=== PATIENT | female | born 1970 | race Caucasian/White ===

== ENCOUNTER 2017-09-23 21:02 | Emergency (ER) | payer BC ==
[2017-09-23] MEDS ORDERED: TETANUS & DIPHTHERIA TOX,ADULT 0.5 ML VIAL ONE (22:46)
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
[2017-09-23] MEDS ORDERED: CIPROFLOXACIN HCL 500 MG TAB ONE (23:35)
[2017-09-23] MEDS ORDERED: SMZ./TMP. 800/160 MG TABLET ONE (23:36)
[2017-09-23 23:55] VITALS: O2SAT 99
[2017-09-23 23:56] VITALS: BP 131/76; TEMP 97.8
== END 2017-09-23 23:48 | disposition home or self-care (01) ==
LOC: ER 21:02
DX: L03.115 Cellulitis of right lower limb (principal); F17.210 Nicotine dependence, cigarettes, uncomplicated; Z23 Encounter for immunization; Z88.0 Allergy status to penicillin
CPT/HCPCS: 90714; 99283

== ENCOUNTER 2017-11-17 17:06 | Emergency (ER) | payer SELFPAY ==
--- NOTE | 2017-11-17 17:57 | ER ---
Nurse's Notes [facility] Name: Leigh Doyle Age: 46 yrs Sex: Female : 1970 Arrival Date: 11/17/2017 Time: 17:20 Bed Waiting Private MD: Diagnosis: Presentation: 11/17 17:24 Presenting complaint: Patient states: Lower abdominal pain with diarrhea and nausea for aj 2 days. Transition of care: patient was not received from another setting of care. Onset of symptoms was November 15, 2017. Care prior to arrival: None. 17:24 Method Of Arrival: Wheelchair 17:24 Acuity: SHIRA 3 aj Triage Assessment: 17:26 General: Appears in no apparent distress. comfortable, Behavior is calm, cooperative, aj appropriate for age. Pain: Complains of pain in right lower quadrant and left lower quadrant. Neuro: Level of Consciousness is awake, alert, obeys commands, Oriented to person, place, time, situation, Appropriate for age. Respiratory: Airway is patent Respiratory effort is even, unlabored, Respiratory pattern is regular, symmetrical. GI: Reports lower abdominal pain, diarrhea, nausea. Derm: Skin is intact, is healthy with good turgor, Skin is pink, warm \T\ dry. normal. 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 - Social history:: Smoking status: Patient uses tobacco products, smokes one pack cigarettes per day. Assessment: 17:55 Reassessment: Left due to wait time. aj Vital Signs: 17:26 BP 130 / 87; Pulse 105; Resp 19; Temp 97.6; Pulse Ox 96% on R/A; Weight 125.19 kg; aj Height 5 ft. 4 in. (162.56 cm); Pain 7/10; 17:26 Body Mass Index 47.37 (125.19 kg, 162.56 cm) aj ED Course: 17:20 Patient arrived in ED. mr 17:25 Triage completed. aj 17:26 Arm band placed on left wrist. Patient placed in waiting room, Patient notified of wait aj time. 17:56 Herbert Sahu MD is Attending Physician. aj Administered Medications: No medications were administered Outcome: 17:55 Eloped from waiting room, before seeing physician aj 17:56 Patient left the ED. aj Signatures: Jewell Muhammad, RN RN aj Josephine Basilio mr
[2017-11-17 18:00] VITALS: BP 130/87; TEMP 97.6; O2SAT 96
== END 2017-11-17 17:56 | disposition left against medical advice (07) ==
LOC: ER 17:06
DX: Z53.21 Procedure and treatment not carried out due to patient leaving prior to being seen by health care provider (principal)
CPT/HCPCS: 99281

== ENCOUNTER 2022-09-23 14:55 | Emergency (ER) | payer OTHER ==
[2022-09-23] MEDS ORDERED: KETOROLAC 30 MG/ML INJ ONE (15:29)
[2022-09-23] MEDS ORDERED: ONDANSETRON 4 MG (ODT) TAB ONE (15:37)
--- NOTE | 2022-09-23 16:12 | RAD REPORT ---
EXAM DESCRIPTION: RAD - Ankle Left 3 View - 09/23/2022 4:04 pm CLINICAL HISTORY: Pain;Swelling COMPARISON: No comparisons FINDINGS/IMPRESSION: No acute fracture. No malalignment. Midfoot degenerative changes noted. Diffuse soft tissue prominence without focality.
--- NOTE | 2022-09-23 16:12 | RAD REPORT ---
EXAM DESCRIPTION: RAD - Foot Left 3 View - 09/23/2022 4:04 pm CLINICAL HISTORY: Pain;Swelling COMPARISON: No comparisons FINDINGS/IMPRESSION: No acute fracture. No malalignment. No significant focal degenerative changes.
--- NOTE | 2022-09-23 16:27 | EDPHYS ---
Physician Documentation [facility] Name: Leigh Doyle Age: 51 yrs Sex: Female : 1970 Arrival Date: 09/23/2022 Time: 15:04 Bed 12 Private MD: ED Physician Jareth Diaz HPI: 09/23 15:15 This 51 yrs old Female presents to ER via Wheelchair with complaints of Ankle Injury. jh7 15:15 The patient presents with decreased range of motion, an injury, pain, that is acute, jh7 swelling, tenderness. The complaints affect the left ankle. Onset: The symptoms/episode began/occurred acutely. Associated signs and symptoms: Pertinent positives: nausea, swelling, of the left ankle, Pertinent negatives: calf tenderness, fever, rash, tingling, warmth. 51-year-old female reports that she was standing off the stool, fell, and inverted her left ankle. Reports the injury occurred at noon today. Reports pain with range of motion and weightbearing. Denies head injury or LOC.. 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 - Social history:: Smoking status: unknown. ROS: 15:15 Constitutional: Negative for fever, chills, and weight loss, Eyes: Negative for injury, jh7 pain, redness, and discharge, ENT: Negative for injury, pain, and discharge, Neck: Negative for injury, pain, and swelling, Cardiovascular: Negative for chest pain, palpitations, and edema, Respiratory: Negative for shortness of breath, cough, wheezing, and pleuritic chest pain, Abdomen/GI: Negative for abdominal pain, nausea, vomiting, diarrhea, and constipation, Back: Negative for injury and pain, Skin: Negative for injury, rash, and discoloration, Neuro: Negative for headache, weakness, numbness, tingling, and seizure. 15:15 MS/extremity: Positive for injury or acute deformity, decreased range of motion, ecchymosis, pain, swelling, tenderness. 15:15 All other systems are negative. Exam: 15:15 Constitutional: This is a well developed, well nourished patient who is awake, alert, jh7 and in no acute distress. Head/Face: Normocephalic, atraumatic. Eyes: Pupils equal round and reactive to light, extra-ocular motions intact. Lids and lashes normal. Conjunctiva and sclera are non-icteric and not injected. Cornea within normal limits. Periorbital areas with no swelling, redness, or edema. Neck: Trachea midline, no thyromegaly or masses palpated, and no cervical lymphadenopathy. Supple, full range of motion without nuchal rigidity, or vertebral point tenderness. No Meningismus. Cardiovascular: Regular rate and rhythm with a normal S1 and S2. No gallops, murmurs, or rubs. Normal PMI, no JVD. No pulse deficits. Respiratory: Lungs have equal breath sounds bilaterally, clear to auscultation and percussion. No rales, rhonchi or wheezes noted. No increased work of breathing, no retractions or nasal flaring. Abdomen/GI: Soft, non-tender, with normal bowel sounds. No distension or tympany. No guarding or rebound. No evidence of tenderness throughout. Back: No spinal tenderness. No costovertebral tenderness. Full range of motion. Skin: Warm, dry with normal turgor. Normal color with no rashes, no lesions, and no evidence of cellulitis. Neuro: Awake and alert, GCS 15, oriented to person, place, time, and situation. Sensory grossly intact. 15:15 Musculoskeletal/extremity: ROM: limited active range of motion, in the left ankle, limited active range of motion due to pain, in the left ankle, Circulation is intact in all extremities. Pulses: are normal with no appreciated deficits, Sensation intact. Left ankle: NVI, very limited range of motion of the ankle secondary to pain and swelling. There is diffuse swelling of the ankle extending to the foot with significant tenderness to palpation over the medial malleolus radiating to the posterior foot. Mild bruising also noted around the medial malleolus. Pain with weightbearing.. Vital Signs: 15:14 BP 150 / 107; Pulse 97; Resp 18 S; Temp 98.2(TE); Pulse Ox 99% on R/A; Weight 60.78 kg aa5 (R); Height 5 ft. 4 in. (R); 15:14 Body Mass Index 23.00 (60.78 kg, 162.56 cm) aa5 MDM: 15:08 Patient medically screened. [facility] 16:35 Differential diagnosis: fracture, sprain. Data reviewed: vital signs, nurses notes, [facility] radiologic studies, plain films. I considered the following discharge prescriptions or medication management in the emergency department Medications were administered in the Emergency Department. See MAR. Independent interpretation of the following test(s) in the Emergency Department X-Ray: My interpretation is No fractures noted. Historians other than the Patient: Friend: . Counseling: I had a detailed discussion with the patient and/or guardian regarding: the historical points, exam findings, and any diagnostic results supporting the discharge/admit diagnosis, the need for outpatient follow up, a orthopedic surgeon, if symptoms persist, to return to the emergency department if symptoms worsen or persist or if there are any questions or concerns that arise at home. Special discussion: The patient is unable to take NSAIDs due to prior gastric surgery occurring 2 years ago. Agreed to prescribe codeine for severe pain but to use Tylenol at home for pain management.. 09/23 15:18 Order name: XRAY Ankle LEFT 3 view; Complete Time: 16:17 [facility] 09/23 15:18 Order name: XRAY Foot LEFT 3 View; Complete Time: 16:17 [facility] 09/23 17:15 Order name: Crutches; Complete Time: 17:45 [facility] Administered Medications: 15:35 Drug: Ketorolac IM 60 mg Route: IM; Site: right ventrogluteal; eh3 16:38 Follow up: Response: Pain is decreased 3 15:35 Drug: Ondansetron PO 4 mg Route: PO; eh3 16:38 Follow up: Response: Nausea is decreased eh3 Disposition: 18:43 I reviewed the patient's care provided by the Advanced Practice Provider and agree with jr11 the diagnosis and treatment plan. Disposition Summary: 09/23/22 16:27 Discharge Ordered Location: Home [facility] Problem: new [facility] Symptoms: are unchanged [facility] Condition: Stable [facility] Diagnosis - Sprain of unspecified ligament of left ankle [facility] Followup: [facility] - With: Kenan Allison MD - When: 2 - 3 days - Reason: Recheck today's complaints Discharge Instructions: - Discharge Summary Sheet [facility] - Ankle Sprain [facility] - Walking Boot, Adult [facility] Forms: - Medication Reconciliation Form [facility] - Thank You Letter [facility] - Prescription Opioid Use [facility] Prescriptions: - ondansetron 4 mg Oral Tablet,disintegrating - take 1 tablet by ORAL route every 4-6 hours As needed; 20 tablet; Refills: 0, [facility] Product Selection Permitted - codeine sulfate 30 mg Oral tablet - take 1 tablet by ORAL route every 4 to 6 hours As needed as needed for pain; 12 jh7 tablet; Refills: 0, Product Selection Permitted Signatures: Dispatcher [employer] EDLiliya Diop, RN RN aa5 Jareth Diaz MD MD [id number] Thais Wagoner RN RN eh3 Shayna Giles, WAX ROOM SUPERVISOR [place] [address] Corrections: (The following items were deleted from the chart) 16:34 15:15 This 51 yrs old Female presents to ER via Wheelchair with complaints of Ankle jh7 Injury. [facility] 17:44 16:26 Walking boot ordered. [facility]
--- NOTE | 2022-09-23 16:27 | ER ---
Nurse's Notes [facility] Name: Leigh Doyle Age: 51 yrs Sex: Female : 1970 Arrival Date: 09/23/2022 Time: 15:04 Bed 12 Private MD: Diagnosis: Sprain of unspecified ligament of left ankle Presentation: 09/23 15:14 Chief complaint: Patient states: "I was on a step stool and I just fell down". Pt c/o aa5 pain to left ankle/left foot. Coronavirus screen: At this time, the client does not indicate any symptoms associated with coronavirus-19. Ebola Screen: Patient denies travel to an Ebola-affected area in the 21 days before illness onset. Initial Sepsis Screen: Does the patient meet any 2 criteria? HR > 90 bpm. Does the patient have a suspected source of infection? No. Patient's initial sepsis screen is negative. Risk Assessment: Do you want to hurt yourself or someone else? Patient reports no desire to harm self or others. Onset of symptoms was September 23, 2022. 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 - Social history:: Smoking status: unknown. Screenin:30 [facility] ED Fall Risk Assessment (Adult) Score/Fall Risk Level 3 or more points = High eh3 Risk Oriented to surroundings, Maintained a safe environment, Educated pt \\T\\ family on fall prevention, incl call for assistance when getting out of bed, Assessed \\T\\ reinforced patient's understanding of fall precautions, Provided non-skid footwear, Hourly rounding (assess needs \\T\\ fall precautionary measures) done, Utilized family, sitter, or virtual nutrition specialist as indicated. Abuse screen: Denies threats or abuse. Denies injuries from another. Nutritional screening: No deficits noted. Tuberculosis screening: No symptoms or risk factors identified. Assessment: 15:30 General: Appears distressed, uncomfortable, Behavior is anxious, crying. Pain: eh3 Complains of pain in left lateral ankle. Neuro: Level of Consciousness is awake, alert, obeys commands, Oriented to person, place, time, situation. Cardiovascular: Capillary refill < 3 seconds Patient's skin is warm and dry. Respiratory: Airway is patent Respiratory effort is even, unlabored, Respiratory pattern is regular, symmetrical. GI: Abdomen is round non-distended, Pt is actively vomiting bile, Reports nausea, vomiting. : No signs and/or symptoms were reported regarding the genitourinary system. EENT: No signs and/or symptoms were reported regarding the EENT system. Derm: Skin is pink, warm \\T\\ dry. Musculoskeletal: Circulation, motion, and sensation intact. Range of motion: limited in left ankle. 16:30 Reassessment: Patient appears in no apparent distress at this time. Patient and/or 3 family updated on plan of care and expected duration. Pain level reassessed. Patient is alert, oriented x 3, equal unlabored respirations, skin warm/dry/pink. 16:50 Reassessment: ED does not have correct size walking boot in stock, fish house worker 3 notified and will bring if available. 17:30 Reassessment: Patient appears in no apparent distress at this time. Patient and/or 3 family updated on plan of care and expected duration. Pain level reassessed. Patient is alert, oriented x 3, equal unlabored respirations, skin warm/dry/pink. Vital Signs: 15:14 BP 150 / 107; Pulse 97; Resp 18 S; Temp 98.2(TE); Pulse Ox 99% on R/A; Weight 60.78 kg aa5 (R); Height 5 ft. 4 in. (R); 15:14 Body Mass Index 23.00 (60.78 kg, 162.56 cm) 5 ED Course: 15:04 Patient arrived in ED. mr 15:08 [facility] Giles F[facility] 15:08 Jareth Diaz MD is Attending Physician. [facility] 15:13 Arm band placed on. 5 15:15 Triage completed. 5 15:19 Thais Wagoner, RN is Primary Nurse. 3 15:30 Patient has correct armband on for positive identification. Call light in reach. Pulse 3 ox on. NIBP on. 16:06 XRAY Ankle LEFT 3 view In Process Unspecified. EDMS 16:06 XRAY Foot LEFT 3 View In Process Unspecified. EDCO 16:26 Kenan Allison MD is Referral Physician. [facility] 17:45 No provider procedures requiring assistance completed. Patient did not have IV access ss during this emergency room visit. Crutch training done. Jimi wrap to left ankle. Administered Medications: 15:35 Drug: Ketorolac IM 60 mg Route: IM; Site: right ventrogluteal; 3 16:38 Follow up: Response: Pain is decreased 3 15:35 Drug: Ondansetron PO 4 mg Route: PO; eh3 16:38 Follow up: Response: Nausea is decreased 3 Medication: 17:55 VIS not applicable for this client. [facility] Outcome: 16:27 Discharge ordered by . [facility] 17:45 Patient left the ED. 3 17:47 Discharged to home via wheelchair, with crutches, with family, with friend. ss 17:47 Condition: good 17:47 Discharge instructions given to patient, Instructed on discharge instructions, follow up and referral plans. medication usage, Demonstrated understanding of instructions, follow-up care, medications, Prescriptions given X 2. Signatures: Dispatcher [employer] [facility] Neema BasilioLiliya RN RN aa5 Magdalena Daily RN RN ss Hall, Erin, RN RN eh3 Shayna Giles, CREATIVE STRATEGIST CREATIVE STRATEGIST 7 Corrections: (The following items were deleted from the chart) 15:16 15:14 BP 150 / 107; Pulse 97bpm; Resp 18bpm; Spontaneous; Pulse Ox 99% RA; Temp 98.2F aa5 Temporal; aa5
[2022-09-23 18:32] VITALS: BP 150/107; TEMP 98.2; O2SAT 99
== END 2022-09-23 17:45 | disposition home or self-care (01) ==
LOC: ER 14:55
DX: S93.402A Sprain of unspecified ligament of left ankle, initial encounter (principal); Z88.0 Allergy status to penicillin; Z88.5 Allergy status to narcotic agent
CPT/HCPCS: 73630; 73610; 96372; 99284; Q0162

== ENCOUNTER 2023-05-12 04:59 | Emergency (ER) | payer OTHER ==
--- OUTSIDE RECORDS SUMMARY | 2023-05-12 05:03 | XMS REPORT | Continuity of Care Document ---
:1970 Author Organization [facility] t Address [address] [place] [address] [place] [id number] Care Team Providers Name Role Phone Unavailable Unavailable Unavailable Problems This patient has no known problems. Allergies, Adverse Reactions, Alerts This patient has no known allergies or adverse reactions. Medications This patient has no known medications. Procedures This patient has no known procedures. Encounters Start End Encounter Admission Attending Care Care Encounter Source Date/Time Date/Time Type Type Clinicians Facility Department ID 2023-01-20 2023-01-20 Outpatient [facility] [id number] [address] 14:48:55 14:48:55 [id number] [address] [place] Results This patient has no known results.
[2023-05-12 06:36] LABS: Specific Gravity 1.008 (1.005-1.030)
[2023-05-12] MEDS ORDERED: NA CHLORIDE 0.9% 1,000 ML ONE (06:41)
[2023-05-12 06:45] LABS: Specific Gravity 1.008 (1.005-1.030); Transitional Epithelial <5 /HPF (None Seen); Urine Bacteria <20 /HPF (<20); Urine Bilirubin NEGATIVE (Negative); Urine Blood Negative (Negative); Urine Clarity Extremely Turbid (Clear); Urine Color Colorless (Yellow); Urine Glucose NEGATIVE (Negative); Urine Mucus Slight /HPF (None Seen); Urine Protein NEGATIVE (Negative); Urine RBC <5 /HPF (None Seen); Urine Urobilinogen Normal (Normal); Urine pH 7.5 (5.0-7.0)
[2023-05-12] MEDS ORDERED: CIPROFLOXACIN HCL 500 MG TAB ONE (07:27)
[2023-05-12] MEDS ORDERED: ACETAMINOPHEN 500 MG TAB ONE ×2 (08:00→09:57)
--- NOTE | 2023-05-12 09:43 | EDPHYS ---
Physician Documentation [facility] Name: Leigh Doyle Age: 52 yrs Sex: Female : 1970 Arrival Date: 05/12/2023 Time: 04:59 Bed 3 Private MD: ED Physician Yvette Meza HPI: 05/12 05:23 This 52 yrs old Female presents to ER via EMS with complaints of fall, berenice syncope. 05:23 fall off [facility]. Details of fall: The patient fell from a height, off furniture, berenice approximately 2 feet. Onset: The symptoms/episode began/occurred just prior to arrival. Associated injuries: The patient sustained injury to the head. The patient has experienced near-syncope. Duration: This was a single episode, that lasted 5 second(s). Context: the episode(s) was witnessed, by family. Associated injury: Head/face:. 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 - Social history:: Smoking status: Patient reports the use of cigarette tobacco products, smokes one pack cigarettes per day. - Family history:: not pertinent. ROS: 05:23 Constitutional: Negative for fever, chills, and weight loss, Eyes: Negative for injury, berenice pain, redness, and discharge, ENT: Negative for injury, pain, and discharge, Neck: Negative for injury, pain, and swelling, Cardiovascular: Negative for chest pain, palpitations, and edema, Respiratory: Negative for shortness of breath, cough, wheezing, and pleuritic chest pain, Abdomen/GI: Negative for abdominal pain, nausea, vomiting, diarrhea, and constipation, : Negative for injury, bleeding, discharge, and swelling, MS/Extremity: Negative for injury and deformity, Skin: Negative for injury, rash, and discoloration, Psych: Negative for depression, anxiety, suicide ideation, homicidal ideation, and hallucinations, Allergy/Immunology: Negative for hives, rash, and allergies, Endocrine: Negative for neck swelling, polydipsia, polyuria, polyphagia, and marked weight changes, 05:23 Back: Positive for decreased range of motion, pain at rest, : Skin: Positive for swelling, :23 Neuro: Positive for headache, Exam: : Constitutional: This is a well developed, well nourished patient who is awake, alert, berenice and in no acute distress. Head/Face: Normocephalic, atraumatic. Eyes: Pupils equal round and reactive to light, extra-ocular motions intact. Lids and lashes normal. Conjunctiva and sclera are non-icteric and not injected. Cornea within normal limits. Periorbital areas with no swelling, redness, or edema. ENT: Nares patent. No nasal discharge, no septal abnormalities noted. Tympanic membranes are normal and external auditory canals are clear. Oropharynx with no redness, swelling, or masses, exudates, or evidence of obstruction, uvula midline. Mucous membranes moist. Neck: Trachea midline, no thyromegaly or masses palpated, and no cervical lymphadenopathy. Supple, full range of motion without nuchal rigidity, or vertebral point tenderness. No Meningismus. Chest/axilla: Normal chest wall appearance and motion. Nontender with no deformity. No lesions are appreciated. Cardiovascular: Regular rate and rhythm with a normal S1 and S2. No gallops, murmurs, or rubs. Normal PMI, no JVD. No pulse deficits. Respiratory: Lungs have equal breath sounds bilaterally, clear to auscultation and percussion. No rales, rhonchi or wheezes noted. No increased work of breathing, no retractions or nasal flaring. Abdomen/GI: Soft, non-tender, with normal bowel sounds. No distension or tympany. No guarding or rebound. No evidence of tenderness throughout. Back: No spinal tenderness. No costovertebral tenderness. Full range of motion. Skin: Warm, dry with normal turgor. Normal color with no rashes, no lesions, and no evidence of cellulitis. MS/ Extremity: Pulses equal, no cyanosis. Neurovascular intact. Full, normal range of motion. Neuro: Awake and alert, GCS 15, oriented to person, place, time, and situation. Cranial nerves II-XII grossly intact. Motor strength 5/5 in all extremities. Sensory grossly intact. Cerebellar exam normal. Normal gait. Psych: Awake, alert, with orientation to person, place and time. Behavior, mood, and affect are within normal limits. 05:23 Musculoskeletal/extremity: ROM: intact in all extremities, full active range of motion, full passive range of motion, Circulation is intact in all extremities. Pulses: are normal with no appreciated deficits, Sensation intact. Compartment Syndrome exam of affected extremity: is normal. Weight bearing: able to fully bear weight, without difficulty, DVT Exam: no pain, no tenderness, negative Homans' sign noted on exam, no appreciated bluish discoloration, no erythema, no increased warmth, swelling, 06:04 ECG was reviewed by the Attending Physician. [facility] Vital Signs: 05:01 BP 141 / 81; Pulse 85; Resp 18 S; Temp 98.2(TE); Pulse Ox 100% on R/A; Weight 61.69 kg as6 (R); Height 5 ft. 4 in. (R); Pain 7/10; 05:52 BP 135 / 88; Pulse 78; Resp 18 S; Pulse Ox 100% on R/A; ha1 07:34 BP 131 / 70; Pulse 76; Resp 16 S; Pulse Ox 100% on R/A; kc6 09:51 BP 132 / 78; Pulse 76; Resp 18; Temp 97.5; Pulse Ox 95% on R/A; ph 05:01 Body Mass Index 23.34 (61.69 kg, 162.56 cm) as6 05:01 Pain Scale: Adult as6 MDM: 05:05 Patient medically screened. [facility] 05:26 Differential Diagnosis altered mental status, sepsis, flu. Differential diagnosis: berenice abrasion, closed head injury, contusion, multiple trauma, sprain, strain, aortic aneurysm, cardiac arrhythmia, cerebrovascular accident, drug effect, GI bleed, idiopathic syncope, transient ischemic attack, vasovagal episode. Data reviewed: vital signs, nurses notes, EMS record, lab test result(s), EKG, radiologic studies, CT scan, plain films. Consideration of Admission/Observation Patient was admitted/placed on observation. Escalation of care including admission/observation considered. I considered the following discharge prescriptions or medication management in the emergency department Medications were administered in the Emergency Department. See MAR. Independent interpretation of the following test(s) in the Emergency Department EKG: See my EKG interpretation above. Test considered but Not performed: MRI: no mri brain. Care significantly affected by the following chronic conditions: dvt, cellulitis, gerd. 05/12 05:21 Order name: Urinalysis w/ reflexes; Complete Time: 07:03 [facility] 05/12 05:21 Order name: PREGU; Complete Time: 07:03 [facility] 05/12 05:21 Order name: CT Traumagram (Head C Spine CAP wo con) [facility] 05/12 05:22 Order name: US Extremity Venous W Compression Lester [facility] 05/12 05:21 Order name: EKG; Complete Time: 05:22 [facility] 05/12 05:21 Order name: EKG - Nurse/Tech; Complete Time: 06:03 [facility] 05/12 05:21 Order name: Ice pack; Complete Time: 06:09 [facility] EC:04 Rate is 60 beats/min. Rhythm is regular. QRS [place] is Normal. MO interval is normal. QRS berenice interval is normal. QT interval is normal. No Q waves. T waves are Normal. No ST changes noted. Clinical impression: Normal ECG and No evidence of ischemia. Interpreted by me. Reviewed by me. Administered Medications: 06:48 Not Given (Physician Discretion): ns 0.9% 1000 ml IV at 1 bolus Per protocol; 1000 mL lg3 bolus 07:10 CANCELLED (Duplicate Order): [id number] mg 200 ml IVPB once over 60 mins [facility] 07:23 Drug: Ciprofloxacin PO 500 mg PO once Route: PO; kc6 07:49 Follow up: Response: No adverse reaction 6 07:49 Drug: Acetaminophen PO 1000 mg PO once Route: PO; kc6 09:43 Follow up: Response: No adverse reaction; Pain is decreased kc6 Disposition Summary: 05/12/23 09:42 Discharge Ordered Notes: Location: Home sp3 Problem: new sp3 Symptoms: have improved sp3 Condition: Fair sp3 Diagnosis - Fall (on) (from) other stairs and steps sp3 - History of falling sp3 - Weakness sp3 - Unspecified injury of head, initial encounter sp3 - Tobacco abuse counseling sp3 - Tobacco use sp3 - UTI/ Urinary tract infection, site not specified sp3 Followup: berenice - With: Private Physician - When: 2 - 3 days - Reason: Recheck today's complaints, Continuance of care, Re-evaluation by your physician Followup: berenice - With: Luis Siu MD - When: 2 - 3 days - Reason: Recheck today's complaints, Re-evaluation by your physician Followup: berenice - With: Biju Sweet MD - When: 2 - 3 days - Reason: Recheck today's complaints, Re-evaluation by your physician Discharge Instructions: - Discharge Summary Sheet berenice - Head Injury, Adult berenice - Fall Prevention in the Home, Adult berenice - Steps to Quit Smoking berenice - Health Risks of Smoking berenice - Urinary Tract Infection, Adult berenice - Weakness berenice - Fatigue berenice - Urinary Tract Infection, Adult, [id number]-[id number] berenice - Steps to Quit Smoking, Mrou-sv-Ikjc berenice - Fall Prevention in the Home, Adult, Gteg-oc-Kchr berenice - Weakness, Rdln-iu-Kwgn berenice - Head Injury, Adult, Fazu-ce-Edgo berenice Forms: - Medication Reconciliation Form sp3 - Thank You Letter sp3 - Antibiotic Education sp3 - Prescription Opioid Use sp3 - Patient Portal Instructions sp3 - Leadership Thank You Letter sp3 Prescriptions: - Cipro 250 mg Oral tablet - take 1 tablet ORAL route every 12 hours; 14 tablet; Refills: 0, Product berenice Selection Permitted Signatures: Dispatcher [employer] EDKenan Tanner MD MD cha Patel, Setul, MD MD sp3 Jon Gautam RN RN as6 Geri Oakley RN RN kc6 Elmira Donnelly RN lg3 Corrections: (The following items were deleted from the chart) 07:10 07:04 Ciprofloxacin IVPB 400 mg 200 ml IVPB once over 60 mins ordered. [facility]
--- NOTE | 2023-05-12 09:43 | ER ---
Nurse's Notes [facility] Name: Leigh Doyle Age: 52 yrs Sex: Female : 1970 Arrival Date: 05/12/2023 Time: 04:59 Bed 3 Private MD: Diagnosis: Fall (on) (from) other stairs and steps;History of falling;Weakness;Unspecified injury of head, initial encounter;Tobacco abuse counseling;Tobacco use;UTI/ Urinary tract infection, site not specified Presentation: 05/12 05:02 Chief complaint: EMS states: pt had a fall on the toilet in the middle of the night. pt as6 states she remembers having to pee in the night and then waking up on the floor. pt has hematoma to left temporal. Coronavirus screen: At this time, the client does not indicate any symptoms associated with coronavirus-19. Ebola Screen: No symptoms or risks identified at this time. Initial Sepsis Screen: Does the patient meet any 2 criteria? No. Patient's initial sepsis screen is negative. Does the patient have a suspected source of infection? No. Patient's initial sepsis screen is negative. Risk Assessment: Do you want to hurt yourself or someone else? Patient reports no desire to harm self or others. Onset of symptoms was May 12, 2023. 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 - Social history:: Smoking status: Patient reports the use of cigarette tobacco products, smokes one pack cigarettes per day. - Family history:: not pertinent. Screenin:56 Abuse screen: Denies threats or abuse. Has been threatened or abused. Nutritional ha1 screening: No deficits noted. Tuberculosis screening: No symptoms or risk factors identified. 07:00 [facility] ED Fall Risk Assessment (Adult) History of falling in the last 3 months, kc6 including since admission Yes- single mechanical fall (1 pt) Confusion or Disorientation No (0 pts) Intoxicated or Sedated No (0 pts) Impaired Gait No (0 pts) Mobility Assist Device Used No (0 pt) Altered Elimination No (0 pt) Score/Fall Risk Level 0 - 2 = Low Risk. Assessment: 05:00 General: Appears uncomfortable, Behavior is cooperative. Pain: Complains of pain in ha1 headache and neck. 05:00 Neuro: Level of Consciousness is awake, alert, obeys commands, Oriented to person, ha1 place, time, situation. Neuro: Reports a syncopal episode. Cardiovascular: Patient's skin is warm and dry. Respiratory: Airway is patent Respiratory effort is even, unlabored, Respiratory pattern is regular, symmetrical. Derm: Skin is pink, warm \T\ dry. Musculoskeletal: Circulation, motion, and sensation intact. Range of motion: intact in all extremities. 06:53 General: pt refusing IV and blood draw at this time. provider notified. lg3 07:00 Reassessment: Patient appears in no apparent distress at this time. General: Behavior kc6 is calm, cooperative, appropriate for age. Neuro: Level of Consciousness is awake, alert, obeys commands, Oriented to person, place, time, situation, Appropriate for age. Cardiovascular: Capillary refill < 3 seconds. Respiratory: Airway is patent Trachea midline Respiratory effort is even, unlabored, Respiratory pattern is regular, symmetrical. GI: No signs and/or symptoms were reported involving the gastrointestinal system. : No signs and/or symptoms were reported regarding the genitourinary system. EENT: No signs and/or symptoms were reported regarding the EENT system. Derm: No signs and/or symptoms reported regarding the dermatologic system. Skin is intact, is healthy with good turgor, Skin is pink, warm \T\ dry. Musculoskeletal: No signs and/or symptoms reported regarding the musculoskeletal system. Circulation, motion, and sensation intact. Capillary refill < 3 seconds, Range of motion: intact in all extremities. 08:43 Reassessment: Patient appears in no apparent distress at this time. Patient and/or ph family updated on plan of care and expected duration. Pain level reassessed. Patient is alert, oriented x 3, equal unlabored respirations, skin warm/dry/pink. 09:43 Reassessment: Patient appears in no apparent distress at this time. No changes from kc6 previously documented assessment. Patient and/or family updated on plan of care and expected duration. Pain level reassessed. Patient is alert, oriented x 3, equal unlabored respirations, skin warm/dry/pink. 09:51 Reassessment: Patient appears in no apparent distress at this time. Patient and/or ph family updated on plan of care and expected duration. Pain level reassessed. Patient is alert, oriented x 3, equal unlabored respirations, skin warm/dry/pink. Vital Signs: 05:01 BP 141 / 81; Pulse 85; Resp 18 S; Temp 98.2(TE); Pulse Ox 100% on R/A; Weight 61.69 kg as6 (R); Height 5 ft. 4 in. (R); Pain 7/10; 05:52 BP 135 / 88; Pulse 78; Resp 18 S; Pulse Ox 100% on R/A; ha1 07:34 BP 131 / 70; Pulse 76; Resp 16 S; Pulse Ox 100% on R/A; kc6 09:51 BP 132 / 78; Pulse 76; Resp 18; Temp 97.5; Pulse Ox 95% on R/A; ph 05:01 Body Mass Index 23.34 (61.69 kg, 162.56 cm) as6 05:01 Pain Scale: Adult as6 ED Course: 05:00 Patient arrived in ED. as6 05:01 Arm band placed on. as6 05:05 Triage completed. as6 05:05 Kenan Kong MD is Attending Physician. berenice 05:55 US Extremity Venous W Compression Lester In Process Unspecified. EDMS 06:10 Missed attempt(s): 22 gauge in left antecubital area. ha1 06:17 CT Traumagram (Head C Spine CAP wo con) In Process Unspecified. EDMS 06:44 Missed attempt(s): 22 gauge in left wrist. Bleeding controlled, band aid applied, lg3 catheter tip intact. 06:44 Missed attempt(s): 22 gauge in right antecubital area. Bleeding controlled, band aid lg3 applied, catheter tip intact. 07:00 Patient has correct armband on for positive identification. Bed in low position. Call kc6 light in reach. Side rails up X2. Adult w/ patient. Client placed on continuous cardiac and pulse oximetry monitoring. NIBP monitoring applied. 07:00 Report received from DEVON Ku \T\ DEVON Garces. kc6 07:37 Attending Physician role handed off by Kenan Kong MD sp3 07:37 Yvette Meza MD is Attending Physician. sp3 08:43 Jennifer Wagoner, RN is Primary Nurse. ph 08:43 No provider procedures requiring assistance completed. ph 09:42 Luis Siu MD is Referral Physician. sp3 09:42 Biju Sweet MD is Referral Physician. sp3 Administered Medications: 06:48 Not Given (Physician Discretion): ns 0.9% 1000 ml IV at 1 bolus Per protocol; 1000 mL lg3 bolus 07:10 CANCELLED (Duplicate Order): [id number] mg 200 ml IVPB once over 60 mins [facility] 07:23 Drug: Ciprofloxacin PO 500 mg PO once Route: PO; kc6 07:49 Follow up: Response: No adverse reaction kc6 07:49 Drug: Acetaminophen PO 1000 mg PO once Route: PO; kc6 09:43 Follow up: Response: No adverse reaction; Pain is decreased kc6 Outcome: 09:42 Discharge ordered by . sp3 09:53 Patient left the ED. ph Signatures: Dispatcher [employer] EDMS Kenan Kong MD MD cha Hall, Patricia, RN RN Elmira Donnelly RN RN 3 Yvette Meza MD MD 3 Jon Gautam RN RN as6 Mili Maradiaga RN RN ha1 Geri Oakley RN RN kc6
[2023-05-12 10:02] VITALS: BP 132/78; TEMP 97.5; O2SAT 95
--- NOTE | 2023-05-12 14:23 | RAD REPORT ---
EXAM DESCRIPTION: US - Extrem Venous W Compress Lester - 05/12/2023 5:53 am CLINICAL HISTORY: 52 years Female; PAIN TECHNIQUE: Spectral analysis and color/grayscale sonographic images of both legs were obtained utili zing a high-frequency linear array transducer supplemented with color Doppler, compression and augmen tation techniques. COMPARISON: None. FINDINGS: Right leg veins: Common femoral: normal Greater saphenous: normal Superficial femoral: normal Popliteal: normal Calf Veins: normal Left leg veins: Common femoral: normal Greater saphenous: normal Superficial femoral: normal Popliteal: normal Calf Veins: normal IMPRESSION: 1. No sonographic evidence for lower extremity deep venous thrombosis in either leg. Electronically signed by: Kyree Garcia MD 05/12/2023 07:30 AM SDET Due to temporary technical issues with the PACS/Fluency reporting system, reports are being signed by the in house radiologist without review as a courtesy to ensure prompt reporting. The interpreting r adiologist is fully responsible for the content of the report.
--- NOTE | 2023-05-12 14:27 | RAD REPORT ---
EXAM DESCRIPTION: CT - Head C Spine Cap Wo Con - 05/12/2023 10:04 am TECHNIQUE: Axial scans of the brain without contrast including multiplanar computer-generated reform ations. Total Dose Length Product: 1623. This exam was performed according to our departmental dose-optimization program, which includes autom ated exposure control, adjustment of the mA and/or kV according to patient size and/or use of iterati ve reconstruction technique. COMPARISON: None. CLINICAL HISTORY: DIZZINESS. FINDINGS: Scalp: There is moderate swelling in the left frontal scalp on series 201 image 21 consist ent with traumatic contusion. Intracranial mass: None. Intracranial density: Unremarkable. Intracranial hemorrhage: No intracranial hemorrhage. Extra-axial fluid collection: None. Midline shift: None Ventricles, subarachnoid spaces and sulci: Normal. Calvarium: Unremarkable. Orbits: Unremarkable. Paranasal sinuses: Aerated. IMPRESSION: 1. No acute intracranial findings. CT scan of the cervical spine: Sex: Female. : 1970. Technique: Axial scans through the cervical spine without contrast including multiplanar reformations. Total Dos e Length Product: 1623. This exam was performed according to our departmental dose-optimization program, which includes autom ated exposure control, adjustment of the mA and/or kV according to patient size and/or use of iterati ve reconstruction technique. CLINICAL HISTORY: DIZZINESS. FINDINGS: C1-2: The predental space is normal. C2-3: The disc is height is normal. There is no disc herniation. C3-4: The disc is height is normal. There is no disc herniation. C4-5: The disc is height is normal. There is no disc herniation. C5-6: The disc is height is normal. There is no disc herniation. C6-7: The disc is height is normal. There is no disc herniation. Intradural: Negative to the limits of visualization by CT. Skeletal structures: There is no acute fracture. There is no subluxation. Musculature and soft tissues: Unremarkable. 1. NeImpression:et1l abnormality. CT scan of the chest abdomen and pelvis: Sex: Female. : 1970. TECHNIQUE: Axial scans of the chest, abdomen and pelvis were performed without intravenous contrast including computer reformations. Total Dose Length Product: 1623. This exam was performed according to our departmental dose-optimization program, which includes autom ated exposure control, adjustment of the mA and/or kV according to patient size and/or use of iterati ve reconstruction technique. COMPARISON: CT scan of the abdomen on April 03, 2023. CLINICAL HISTORY: DIZZINESS. CT Chest: FINDINGS: Cardiac: Heart size: Normal. Pericardial effusion: None. Vasculature: Aorta: No aneurysm. Pulmonary arteries: No dilatation. Lungs: No pulmonary infiltrate. Pleura: No effusion. Mediastinum: No mass. Marlena: No mass. Musculoskeletal: Thoracic spondylosis IMPRESSION: 1. No acute CT findings in the chest. CT Abdomen and Pelvis: Findings: Liver: Size: Liver is mildly enlarged and measures 18.8 cm. Parenchyma: No gross architectural distortion or subcapsular fluid. Vasculature: Portal and hepatic veins: Indeterminate, noncontrast. Spleen: The spleen is normal in size and measures 8.4 cm. No gross architectural distortion or subc apsular fluid. Gallbladder: Gallbladder is surgically absent. Bile ducts: Common bile duct is about 8 mm. Pancreas: No peripancreatic fluid collection or ductal dilatation. Adrenal glands: Normal. Kidneys: Renal length is 9.3 cm on the left and 10.7 cm on the right. There is no perinephric fluid. 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 Bladder: No bladder wall thickening. Pelvis: Uterus is 5.5 cm. The fundus is tilted to the left. Intestinal Tract: Stomach and duodenum: Gastric bypass surgical changes. There is gastric thickening on series 401 imag e 52. This is unchanged comparing to April 03. Small bowel: There are fluid levels throughout the small bowel. There may be some edematous changes i n the jejunum on series 4 1 image 72. There is no detectable intramural hematoma or other specific fi ndings for traumatic bowel injury. CT with GI contrast may be helpful if there is a clinical concern for traumatic bowel injury. Large bowel: There is moderate colonic stool burden. There is no mural hematoma suggested or other lo ss of mural integrity. Appendix: The appendix is not well visualized. Mesentery and Omentum: There is no mass or fluid collection. Retroperitoneum: There is no periaortic mass or lymphadenopathy. Vasculature: Aorta: Normal. Iliac arteries: Normal. Free fluid: There is no gross ascites. Musculoskeletal: Musculature, abdominal wall and soft tissues: Unremarkable. Skeletal structures: Unremarkable. IMPRESSION: 1. Cannot exclude edematous changes in the jejunum. 2. Status post gastric bypass. 3. 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 4. Status post cholecystectomy and mild biliary dilatation. 5. No other acute CT findings in the abdomen/pelvis Electronically signed by: Shahid Stephens MD 05/12/2023 07:56 AM TEST TECHNICIAN Due to temporary technical issues with the PACS/Fluency reporting system, reports are being signed by the in house radiologist without review as a courtesy to ensure prompt reporting. The interpreting r adiologist is fully responsible for the content of the report.
--- NOTE | 2023-05-14 14:17 | EKG ---
Test Date: 2023-05-12 Test Time: 05:58:57 Grid Inspector: ETIENNE MEASUREMENT RESULTS: Intervals: Rate: 60 MT: 156 QRSD: 92 QT: 416 QTc: 416 [place]: P: 61 MT: 156 QRS: 14 T: 76 INTERPRETIVE STATEMENTS: Sinus rhythm with marked sinus arrhythmia Otherwise normal ECG No previous ECG available for comparison Electronically Signed On 05-14-23 14:09:12 MASTER TECHNICIAN by Biju Sweet
== END 2023-05-12 09:53 | disposition home or self-care (01) ==
LOC: ER 04:59
DX: R53.1 Weakness (principal); S09.90XA Unspecified injury of head, initial encounter; N39.0 Urinary tract infection, site not specified; W10.8XXA Fall (on) (from) other stairs and steps, initial encounter; Z91.81 History of falling; Z72.0 Tobacco use; Z71.6 Tobacco abuse counseling; Z88.0 Allergy status to penicillin; Z88.5 Allergy status to narcotic agent
CPT/HCPCS: 93005; 81001; 81025; 70450; 71250; 72125; 93970; 99283; J7030

== ENCOUNTER 2023-11-28 00:05 | Emergency (ER) | payer OTHER ==
--- OUTSIDE RECORDS SUMMARY | 2023-11-28 00:10 | XMS REPORT | Continuity of Care Document ---
Author Name Unknown Address [address] [place] [address] [address] [place] [id number] [facility] thconnect Address [address] [facility] [address] [place] [address] Care Team Providers Care History Faculty Member Name Role Phone BENJA GODINZE Attending Clinician Unavailab le Encounters Start Date/Time End Date/Time Encounter Type Admission Type Attending Clinicians Care Facility Care Department Encounter ID Source 2023-12-22 13:30:00 2023-12-22 13:30:00 Outpatient BENJA GODINEZ [id number] [facility] 2023-12-05 11:00:00 2023-12-05 11:00:00 Outpatient BENJA GODINEZ [id number] [facility] 2023-01-20 14:48:55 2023-01-20 14:48:55 Outpatient [facility] [id number] Shahid Boyer
[2023-11-28] MEDS ORDERED: KETOROLAC 30 MG/ML INJ ONE (01:33)
[2023-11-28] MEDS ORDERED: ONDANSETRON 4 MG/2 ML VIAL ONE (01:33)
[2023-11-28] MEDS ORDERED: NA CHLORIDE 0.9% 1,000 ML ONE (01:33)
[2023-11-28 01:51] LABS: Calcium Oxalate Crystals- Ur Moderate /HPF (None Seen); Specific Gravity 1.023 (1.005-1.030); Urine Bacteria <20 /HPF (<20); Urine Bilirubin NEGATIVE (Negative); Urine Blood Negative (Negative); Urine Clarity Extremely Turbid (Clear); Urine Color Light-Yellow (Yellow); Urine Culture Reflex Order REFLEXED; Urine Glucose NEGATIVE (Negative); Urine Ketones NEGATIVE (Negative); Urine Microscopic Reflex YN ORDER UMIC; Urine Mucus 3+ /HPF (None Seen); Urine Nitrite NEGATIVE (Negative); Urine Protein TRACE (Negative); Urine Urobilinogen 1+ (Normal); Urine WBC 20-50 /HPF (<5); Urine pH 6.5 (5.0-7.0)
[2023-11-28 01:55] LABS: Absolute Basophils 0.1 K/uL (0-0.5); Absolute Eosinophils 0.9 K/uL (0-0.5); Absolute Lymphocytes (CBC) 2.5 K/uL (0.7-4.9); Absolute Monocytes 0.7 K/uL (0.1-1.3); Absolute Neutrophil 6.7 K/uL (1.8-8.0); Albumin 2.8 g/dL (3.4-5.0); Albumin/Globulin Ratio 0.8 (1.1-1.8); Basophils % 0.8 % (0-1.3); Bilirubin Total 0.2 mg/dL (0.2-1.0); Eosinophils % 7.9 % (0-4.4); Globulin 3.6 g/dL (2.3-3.5); Hematocrit 24.5 % (36.0-45.0); Hemoglobin 7.3 g/dL (12.0-15.0); Lymphocytes % 23.3 % (15.3-44.8); MCH 19.2 pg (27.0-35.0); MCHC 29.6 g/dL (32.0-36.0); MCV 64.8 fL (80-100); MPV 7.1 fL (7.6-11.3); Monocytes % 6.1 % (3.3-12.3); Neutrophils % 61.9 % (41.7-73.7); Nucleated Red Blood Cells % 0.1 % (0-0); Platelets 593 thou/uL (152-406); Protein, Total 6.4 g/dL (6.4-8.2); RBC Red Blood Cell Count 3.78 M/uL (3.86-4.86); Red Cell Distribution Width 19.1 % (12.1-15.2)
[2023-11-28] MEDS ORDERED: NITROFURAN MACRO 100 MG CAP PO ONE (02:33)
--- NOTE | 2023-11-28 02:52 | EDPHYS ---
Physician Documentation [facility] Name: Leigh Doyle Age: 53 yrs Sex: Female : 1970 Arrival Date: 11/28/2023 Time: 00:05 Bed 20 Private MD: ED Physician Devon Leonardo HPI: 11/27 00:37 This 53 yrs old Female presents to ER via Ambulatory with complaints of Knee ec2 Pain, Back Pain. 00:37 Patient arrives today for evaluation of concern for dehydration as well as general body ec2 pain. Patient reports no recent falls injuries or trauma. Patient reports that she previously has had a gastric bypass, states that since 7 years ago she been having poor p.o. intake. Patient reports bouts of nausea and vomiting. Patient denies any diarrheal symptoms. Patient reports bilateral tibia pain. No recent falls or injuries or trauma. Patient also reports some low back pain.. 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 Last tetanus immunization: up to date Pneumococcal vaccine is up to date, Flu vaccine is not up to date. It has been more than one year since last vaccine. - Infectious Disease History:: Denies. - Social history:: Smoking status: Patient reports the use of cigarette tobacco products, smokes one-half pack cigarettes per day. ROS: 00:37 Constitutional: as per hpi ec2 Exam: 00:37 Constitutional: GEN: NAD Head: atraumatic Eyes: EOMI Ears: External ears are ec2 normal. CV: regular rate LUNGS: no respiratory distress ABD: non-distended, soft, not guarding, not rigid. SKIN: no evidence of rashes MSK: no evidence of trauma, no C or T spine TTP. Minimal L-spine discomfort. Bilateral lower extremities without evidence of trauma. NEURO: moves all extremities equally Vital Signs: 00:34 BP 112 / 82; Pulse 96; Resp 18; Temp 98.4; Pulse Ox 100% ; Weight 57.61 kg; Height 5 as6 ft. 4 in. ; Pain 10/10; 01:45 BP 121 / 70; Pulse 90; Resp 20; Pain 8/10; eb1 03:38 BP 127 / 66; Pulse 84; Resp 17 S; Temp 98.1(O); Pulse Ox 100% on R/A; eb1 00:34 Body Mass Index 21.80 (57.61 kg, 162.56 cm) as6 00:34 Pain Scale: Adult as6 01:45 Pain Scale: Adult eb1 MDM: 00:14 Patient medically screened. ec2 00:37 Data reviewed: vital signs. ED course: Patient arrives today for evaluation of poor ec2 p.o. intake along with low back pain. Examination remarkable for well-appearing nontoxic but was otherwise in no acute distress with a reassuring examination. Will obtain lab work to evaluate for electrolyte disturbances as well as anemia and UTI. Will also obtain CT scan of the L-spine to evaluate for bony pathology.. 01:59 ED course: Metabolic profile shows appropriate electrolytes and renal function. Urine ec2 as infectious appearing with leuk esterase and WBCs present. CBC does show anemia with a hemoglobin of 7.3. . 01:59 ED course: When compared to external records, anemia appears similar in value.. ec2 02:48 ED course: CT of the L-spine shows no evidence of fracture or misalignment.. ec2 11/27 00:36 Order name: CBC with Diff ec2 11/27 00:36 Order name: CMP; Complete Time: :58 ec2 11/27 00:36 Order name: Lipase; Complete Time: 01:58 ec2 11/27 00:36 Order name: Urinalysis w/ reflexes; Complete Time: 01:58 ec2 11/27 01:55 Order name: Urine Culture EDMS 11/27 01:57 Order name: CBC Smear Scan EDMS 11/27 00:37 Order name: CT Lumbar Spine Wo Con ec2 11/27 00:36 Order name: IV Saline Lock; Complete Time: 01:23 ec2 11/27 00:36 Order name: Labs collected and sent; Complete Time: 01:23 ec2 11/27 01:49 Order name: Straight Cath; Complete Time: 02:20 ec2 Administered Medications: 01:55 Drug: NS 0.9% IV 1000 ml IV at 1 bolus Per protocol; 1000 mL bolus Route: IV; Rate: 1 eb1 bolus; Site: right antecubital; 03:38 Follow up: IV Status: Completed infusion; IV Intake: 1000ml eb1 02:21 Drug: TORadol - Ketorolac IVP 15 mg IVP once Route: IVP; Site: right antecubital; eb1 02:43 Follow up: Response: Pain is decreased eb1 02:21 Drug: Ondansetron IVP 4 mg IVP once; over 2 minutes Route: IVP; Site: right antecubital;eb1 02:42 Follow up: Response: Nausea is decreased eb1 02:37 Drug: Nitrofurantoin PO 100 mg PO once; administer with food Route: PO; eb1 03:38 Follow up: Response: No adverse reaction eb1 Disposition Summary: 11/28/23 02:52 Discharge Ordered Notes: Location: Home ec2 Condition: Stable ec2 Diagnosis - Anemia, unspecified ec2 - Nausea with vomiting, unspecified ec2 - UTI/ Urinary tract infection, site not specified ec2 Followup: ec2 - With: Private Physician - When: - Reason: Re-evaluation by your physician Discharge Instructions: - Discharge Summary Sheet ec2 - Nausea and Vomiting, Adult, [id number] ec2 Forms: - Medication Reconciliation Form ec2 - Antibiotic Education ec2 - Prescription Opioid Use ec2 - Patient Portal Instructions ec2 - Leadership Thank You Letter ec2 Prescriptions: - Macrobid 100 mg Oral Capsule - take 1 capsule ORAL route every 12 hours for 7 days; 14 capsule; Refills: 0, ec2 Product Selection Permitted Signatures: Dispatcher [employer] EDMS Rubi Vernon RN RN eb1 Jon Gautam RN RN as6 Devon Leonardo MD MD ec2 Corrections: (The following items were deleted from the chart) 00:37 00:37 CBC+H.LAB.BRZ ordered. EDMS EDMS 00:37 00:37 COMPREHENSIVE METABOLIC PANEL+C.LAB.BRZ ordered. EDMS EDMS 00:37 00:37 LIPASE+C.LAB.BRZ ordered. EDMS EDMS 00:37 00:37 Urinalysis+U.LAB.BRZ ordered. EDMS EDMS
--- NOTE | 2023-11-28 02:52 | ER ---
Nurse's Notes [facility] Name: Leigh Doyle Age: 53 yrs Sex: Female : 1970 Arrival Date: 11/28/2023 Time: 00:05 Bed 20 Private MD: Diagnosis: Anemia, unspecified;Nausea with vomiting, unspecified;UTI/ Urinary tract infection, site not specified Presentation: 11/27 00:34 Chief complaint: Patient states: Pt reports multiple complaints including burning with as6 urination, bilateral del toro pain, left rib pain, diarrhea last week, drastic weight loss after gastric bypass sx. Coronavirus screen: Vaccine status: Patient reports being unvaccinated. Client denies travel out of the [place] in the last 14 days. Ebola Screen: Patient negative for fever greater than or equal to 101.5 degrees Fahrenheit, and additional compatible Ebola Virus Disease symptoms Patient denies exposure to infectious person. Patient denies travel to an Ebola-affected area in the 21 days before illness onset. Initial Sepsis Screen: Does the patient meet any 2 criteria? No. Patient's initial sepsis screen is negative. Does the patient have a suspected source of infection? No. Patient's initial sepsis screen is negative. Risk Assessment: Do you want to hurt yourself or someone else? Patient reports no desire to harm self or others. Onset of symptoms is unknown. 00:34 Method Of Arrival: Ambulatory as6 00:34 Acuity: SHIRA 3 as6 Triage Assessment: 00:37 General: Appears in no apparent distress. Behavior is calm, cooperative. Pain: as6 Complains of pain in left low back, left mid back, right mid back, right low back, right del toro and left del toro Pain does not radiate. Pain currently is 10 out of 10 on a pain scale. Musculoskeletal: Capillary refill < 3 seconds. 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 Last tetanus immunization: up to date Pneumococcal vaccine is up to date, Flu vaccine is not up to date. It has been more than one year since last vaccine. - Infectious Disease History:: Denies. - Social history:: Smoking status: Patient reports the use of cigarette tobacco products, smokes one-half pack cigarettes per day. Screenin:41 Abuse screen: Denies threats or abuse. Denies injuries from another. Nutritional eb1 screening: No deficits noted. Tuberculosis screening: No symptoms or risk factors identified. Assessment: 01:00 General: Appears in no apparent distress. uncomfortable, slender, well groomed, well eb1 developed, well nourished, Behavior is calm, cooperative, appropriate for age. Pain: Complains of pain in back. Neuro: No deficits noted. Neuro: No deficits noted. Cardiovascular: No deficits noted. Respiratory: No deficits noted. GI: No deficits noted. Reports nausea. : No deficits noted. No signs and/or symptoms were reported regarding the genitourinary system. EENT: No deficits noted. No signs and/or symptoms were reported regarding the EENT system. Derm: No deficits noted. No signs and/or symptoms reported regarding the dermatologic system. Musculoskeletal: No deficits noted. No signs and/or symptoms reported regarding the musculoskeletal system. 02:00 Reassessment: Patient appears in no apparent distress at this time. No changes from eb1 previously documented assessment. Patient and/or family updated on plan of care and expected duration. Pain level reassessed. Patient is alert, oriented x 3, equal unlabored respirations, skin warm/dry/pink. 03:00 Reassessment: Patient appears in no apparent distress at this time. No changes from eb1 previously documented assessment. Patient and/or family updated on plan of care and expected duration. Pain level reassessed. Patient is alert, oriented x 3, equal unlabored respirations, skin warm/dry/pink. Vital Signs: 00:34 BP 112 / 82; Pulse 96; Resp 18; Temp 98.4; Pulse Ox 100% ; Weight 57.61 kg; Height 5 as6 ft. 4 in. ; Pain 10/10; 01:45 BP 121 / 70; Pulse 90; Resp 20; Pain 8/10; eb1 03:38 BP 127 / 66; Pulse 84; Resp 17 S; Temp 98.1(O); Pulse Ox 100% on R/A; eb1 00:34 Body Mass Index 21.80 (57.61 kg, 162.56 cm) as6 00:34 Pain Scale: Adult as6 01:45 Pain Scale: Adult eb1 ED Course: 00:10 Patient arrived in ED. gm2 00:14 Devon Leonardo MD is Attending Physician. ec2 00:37 Triage completed. as6 00:37 Arm band placed on right wrist. as6 01:22 Missed attempt(s): 20 gauge in left forearm. Bleeding controlled, band aid applied, rv1 catheter tip intact. 01:22 Inserted saline lock: 22 gauge in right antecubital area, using aseptic technique. rv1 Blood collected. 01:23 CBC with Diff Sent. eb1 01:23 CMP Sent. eb1 01:23 Lipase Sent. eb1 01:23 Urinalysis w/ reflexes Sent. eb1 01:41 CT Lumbar Spine Wo Con In Process Unspecified. EDMS 02:20 Urine Culture Sent. eb1 02:41 No provider procedures requiring assistance completed. eb1 03:12 Patient has correct armband on for positive identification. Bed in low position. Call eb1 light in reach. Side rails up X 1. 03:39 IV discontinued, intact, bleeding controlled, No redness/swelling at site. Pressure eb1 dressing applied. Administered Medications: 01:55 Drug: NS 0.9% IV 1000 ml IV at 1 bolus Per protocol; 1000 mL bolus Route: IV; Rate: 1 eb1 bolus; Site: right antecubital; 03:38 Follow up: IV Status: Completed infusion; IV Intake: 1000ml eb1 02:21 Drug: TORadol - Ketorolac IVP 15 mg IVP once Route: IVP; Site: right antecubital; eb1 02:43 Follow up: Response: Pain is decreased eb1 02:21 Drug: Ondansetron IVP 4 mg IVP once; over 2 minutes Route: IVP; Site: right antecubital;eb1 02:42 Follow up: Response: Nausea is decreased eb1 02:37 Drug: Nitrofurantoin PO 100 mg PO once; administer with food Route: PO; eb1 03:38 Follow up: Response: No adverse reaction eb1 Medication: 03:12 VIS not applicable for this client. eb1 Intake: 03:38 IV: 1000ml; Total: 1000ml. eb1 Outcome: 02:52 Discharge ordered by . [email or web address] 03:12 Condition: improved eb1 03:12 Discharge instructions given to patient, family, Instructed on discharge instructions, follow up and referral plans. Demonstrated understanding of instructions, follow-up care, medications, 03:39 Discharged to home ambulatory, with significant other, eb1 03:39 Patient left the ED. eb1 Signatures: Dispatcher [employer] Rubi Louis RN RN eb1 Jon Gautam RN RN as6 Terrie Ordonez rv1 Devon Leonardo MD MD ec2 [place] Osorio 2
[2023-11-28 03:04] LABS: Anisocytosis 2+; Blood Morphology Comment NOTED (NOT SEEN); Platelet Estimate ADEQ; Polychromasia SLIGHT; White Blood Cell Scan OK (OK)
[2023-11-28 03:58] VITALS: BP 127/66; TEMP 98.1; O2SAT 100
--- NOTE | 2023-11-28 13:48 | RAD REPORT ---
EXAM DESCRIPTION: CT - Spine Lumbar Wo Con - 11/28/2023 6:27 am CLINICAL HISTORY: The patient is 53 years old and is Female; PAIN TECHNIQUE: Axial computed tomography images of the lumbar spine without intravenous contrast. Sagi ttal and coronal reformatted images were created and reviewed. This CT exam was performed using one or more of the following dose reduction techniques: automated exposure control, adjustment of the mA and/or kV according to patient size, and/or use of iterative reconstruction technique. COMPARISON: No relevant prior studies available. FINDINGS: VERTEBRAE: The vertebral body heights and alignment are maintained. No acute fracture. DISCS/SPINAL CANAL/NEURAL FORAMINA: The intervertebral disc spaces are maintained. No spinal marisol l stenosis. SOFT TISSUES: The soft tissues are normal. IMPRESSION: No fracture or malalignment of the lumbar spine. Electronically signed by: Harleen Ahumada MD 11/28/2023 02:30 AM CDT RP Due to temporary technical issues with the PACS/Fluency reporting system, reports are being signed by the in house radiologists without review as a courtesy to insure prompt reporting. The interpreting radiologist is fully responsible for the content of the report.
== END 2023-11-28 03:39 | disposition home or self-care (01) ==
LOC: ER 00:05
DX: N39.0 Urinary tract infection, site not specified (principal); D64.9 Anemia, unspecified; F17.210 Nicotine dependence, cigarettes, uncomplicated; Z98.84 Bariatric surgery status
CPT/HCPCS: 96361; 87088; 85025; 81001; 87086; 36415; 83690; 80053; 72131; 96375; 96374; 99284; J2405; J7030

== ENCOUNTER 2024-07-14 12:35 | Emergency (ER) | payer OTHER ==
--- OUTSIDE RECORDS SUMMARY | 2024-07-14 12:38 | XMS REPORT | Continuity of Care Document ---
Author Name Unknown Address [address] [facility]. [address] [place] [id number] [facility] thconnect Address [address] [facility] [address] [place] [address] Care Team Providers Care Sap Analyst Name Role Phone LEE CARRILLO Attending Clinician Unavailable BENJA GODINEZ Attending Clinician Unavailab le Payers Payer Name Policy Type Policy Number Effective Date Expirati on Date Source [facility] [employer] 9 [id number] 2023 00:00:00 Encounters Start Date/Time End Date/Time Encounter Type Admission Type Attending Clinicians Care Facility Care Department Encounter ID Source 2023-12-26 09:30:00 2023-12-26 09:30:00 Outpatient LEE CARRILLO [id number] [facility] 2023-12-22 13:30:00 2023-12-22 13:30:00 Outpatient BENJA GODINEZ [id number] [facility] 2023-12-05 11:00:00 2023-12-05 11:00:00 Outpatient BENJA GODINEZ [id number] [facility] 2023-01-20 14:48:55 2023-01-20 14:48:55 Outpatient [facility] [id number] Shahid Boyer
[2024-07-14] MEDS ORDERED: ONDANSETRON 4 MG/2 ML VIAL ONE (13:00)
[2024-07-14] MEDS ORDERED: NA CHLORIDE 0.9% 1,000 ML ONE (13:00)
[2024-07-14] MEDS ORDERED: LORAZEPAM 1 MG TABLET ONE (13:10)
--- NOTE | 2024-07-14 14:43 | RAD REPORT ---
EXAM: CT brain without contrast HISTORY: trauma headache COMPARISON: 05/12/2023 TECHNIQUE: Multiple contiguous axial images were obtained and a CT of the brain without contrast. Sag ittal and coronal reformats were performed. FINDINGS: No evidence of hydrocephalus, intracranial hemorrhage, or extra-axial fluid collection. The brain is normal in morphology. The calvarium is intact. The visualized paranasal sinuses and mastoid air cells are essentially clear . IMPRESSION: No evidence of acute intracranial abnormality. EXAM: CT of the cervical spine without contrast HISTORY: trauma headache COMPARISON: None TECHNIQUE: Multiple contiguous axial images were obtained in a CT of the cervical spine without contr ast. Sagittal and coronal reformats were performed. FINDINGS: The vertebral bodies demonstrate normal height and alignment. No evidence of acute fracture or subluxation.. No degenerative changes are present. No prevertebral soft tissue swelling is seen. The posterior facets are well aligned. Normal alignment of the skull base with the cervical spine is seen. The lung apices are unremarkable. IMPRESSION: No evidence of acute osseous abnormality of the cervical spine.
[2024-07-14 14:56] LABS: Absolute Basophils 0.1 K/uL (0-0.5); Absolute Eosinophils 0.8 K/uL (0-0.5); Absolute Lymphocytes (CBC) 1.9 K/uL (0.7-4.9); Basophils % 0.8 % (0-1.3); Eosinophils % 8.3 % (0-4.4); Hematocrit 30.6 % (36.0-45.0); Hemoglobin 9.5 g/dL (12.0-15.0); Lymphocytes % 19.6 % (15.3-44.8); MCH 22.3 pg (27.0-35.0); MCHC 30.9 g/dL (32.0-36.0); MCV 72.3 fL (80-100); MPV 7.4 fL (7.6-11.3); Monocytes % 9.8 % (3.3-12.3); Neutrophils % 61.5 % (41.7-73.7); Platelets 397 thou/uL (152-406); RBC Red Blood Cell Count 4.24 M/uL (3.86-4.86); Red Cell Distribution Width 16.5 % (12.1-15.2)
[2024-07-14 15:12] LABS: Albumin 3.2 g/dL (3.4-5.0); Albumin/Globulin Ratio 0.9 (1.1-1.8); Anion Gap 8.6 mEq/L (5.0-15.0); Bilirubin Total 0.3 mg/dL (0.2-1.0); Globulin 3.6 g/dL (2.3-3.5); Potassium 3.6 mEq/L (3.5-5.1); Protein, Total 6.8 g/dL (6.4-8.2)
--- NOTE | 2024-07-14 15:30 | ER ---
Nurse's Notes [facility] Name: Leigh Doyle Age: 53 yrs Sex: Female : 1970 Arrival Date: 07/14/2024 Time: 12:35 Bed 15 Private MD: Diagnosis: Closed head injury, vomiting, postconcussion syndrome Presentation: 07/14 12:45 Chief complaint: Patient states: fell from sitting position last night, hit her head, iw has been dizzy since then , also has a left sided headache. Coronavirus screen: At this time, the client does not indicate any symptoms associated with coronavirus-19. Ebola Screen: No symptoms or risks identified at this time. Initial Sepsis Screen: Does the patient meet any 2 criteria? No. Patient's initial sepsis screen is negative. Does the patient have a suspected source of infection? No. Patient's initial sepsis screen is negative. Risk Assessment: Do you want to hurt yourself or someone else? Patient reports no desire to harm self or others. Onset of symptoms was July 13, 2024. 12:45 Method Of Arrival: Wheelchair iw 12:45 Acuity: SHIRA 3 iw Triage Assessment: 12:45 General: Appears uncomfortable, Behavior is calm, cooperative, appropriate for age. ll1 Pain: Complains of pain in head Quality of pain is described as aching. Neuro: Reports dizziness, headache. 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 - Infectious Disease History:: Denies. - Social history:: Smoking status: Patient reports the use of cigarette tobacco products, smokes one-half pack cigarettes per day. Screenin:40 [facility] ED Fall Risk Assessment (Adult) History of falling in the last 3 months, rs5 including since admission Yes- single mechanical fall (1 pt) Confusion or Disorientation No (0 pts) Intoxicated or Sedated No (0 pts) Impaired Gait No (0 pts) Mobility Assist Device Used No (0 pt) Altered Elimination No (0 pt) Score/Fall Risk Level 0 - 2 = Low Risk Oriented to surroundings, Maintained a safe environment. Abuse screen: Denies threats or abuse. Nutritional screening: No deficits noted. Tuberculosis screening: No symptoms or risk factors identified. Assessment: 12:38 General: Appears in no apparent distress. uncomfortable, Behavior is cooperative, rs5 anxious. Pain: Denies pain. Neuro: Level of Consciousness is awake, alert, obeys commands, Oriented to person, place, time, situation. Cardiovascular: Patient's skin is warm and dry. Respiratory: Airway is patent Respiratory effort is even, unlabored, Respiratory pattern is regular, symmetrical. GI: Abdomen is round non-distended, Abd is soft and non tender X 4 quads. : No signs and/or symptoms were reported regarding the genitourinary system. EENT: No signs and/or symptoms were reported regarding the EENT system. Derm: Skin is intact, Skin is pink, warm \\T\\ dry. Musculoskeletal: Range of motion: intact in all extremities. 12:55 Reassessment: to bedside for IV insertion, pt states "I am really scared of needles, rs5 can I get something to calm me down before you do an IV?" provider notified . 13:10 Reassessment: to bedside for med adm . rs5 13:42 Reassessment: to bedside for IV insertion, missed attempts x2 by me. charge nurse rs5 notified . 13:55 Reassessment: pt gone to CT. rs5 14:07 Reassessment: pt back from CT. rs5 14:10 Reassessment: Patient and/or family updated on plan of care and expected duration. Pain rs5 level reassessed. Patient is alert, oriented x 3, equal unlabored respirations, skin warm/dry/pink. 15:15 Reassessment: Patient and/or family updated on plan of care and expected duration. Pain rs5 level reassessed. Patient is alert, oriented x 3, equal unlabored respirations, skin warm/dry/pink. 16:01 Reassessment: Patient and/or family updated on plan of care and expected duration. Pain rs5 level reassessed. Patient is alert, oriented x 3, equal unlabored respirations, skin warm/dry/pink. Vital Signs: 12:47 BP 128 / 70; Pulse 71; Resp 16; Temp 97.8; Pulse Ox 100% on R/A; Weight 56.25 kg; iw Height 5 ft. 4 in. ; Pain 6/10; 16:00 BP 132 / 74; Pulse 70; Resp 17; Pulse Ox 99% on R/A; rs5 12:47 Body Mass Index 21.28 (56.25 kg, 162.56 cm) iw 12:47 Pain Scale: Adult iw ED Course: 12:35 Patient arrived in ED. mr 12:36 Yvette Meza MD is Attending Physician. sp3 12:40 Moiz Bowman, DEVON is Primary Nurse. rs5 12:40 Arm band placed on Patient placed in an exam room, on a stretcher. ll1 12:40 Patient has correct armband on for positive identification. Bed in low position. Call rs5 light in reach. Side rails up X2. 12:40 No provider procedures requiring assistance completed. rs5 12:46 Triage completed. iw 13:00 Inserted saline lock: 22 gauge in right forearm, using aseptic technique. patient ty discontinued IV themselves IV discontinued, intact, bleeding controlled, No redness/swelling at site. Pressure dressing applied. 13:30 Missed attempt(s): 22 gauge in right forearm. Bleeding controlled, band aid applied, rs5 catheter tip intact. 13:41 Missed attempt(s): 22 gauge in left wrist. Bleeding controlled, band aid applied, rs5 catheter tip intact. 14:16 CT Head C Spine In Process Unspecified. EDMS 16:00 Provided Education on: discharge instructions . rs5 Administered Medications: 13:10 Drug: LORazepam PO 1 mg PO once Route: PO; rs5 13:37 Follow up: Response: No adverse reaction; Anxiety decreased rs5 14:50 Drug: Ondansetron IVP 4 mg IVP once; over 2 minutes Route: IVP; Site: right forearm; rs5 15:40 Follow up: Response: No adverse reaction; Nausea is decreased rs5 14:50 Drug: NS 0.9% IV 1000 ml IV at 1 bolus Per protocol; to be given as a bolus over 60 iw minutes Route: IV; Rate: 1 bolus; Site: right forearm; 15:51 Follow up: Response: No adverse reaction; IV Intake: 999ml rs5 Medication: 14:37 VIS not applicable for this client. rs5 Intake: 15:51 IV: 999ml; Total: 999ml. rs5 Outcome: 15:30 Discharge ordered by . sp3 16:05 Discharged to home via wheelchair, with family, rs5 16:05 Condition: stable rs5 16:05 Discharge instructions given to patient, family, Instructed on discharge instructions, follow up and referral plans. medication usage, Demonstrated understanding of instructions, follow-up care, medications, Prescriptions given X 1, 16:06 Patient left the ED. rs5 Signatures: Dispatcher [employer] EDHI Neema Basilio, Reg Reg mr Arleen Dugan, RN RN iw Papito Trinidad RN RN ll1 Yvette Meza MD MD sp3 Moiz Bowman RN RN rs5 Caleb Mclean ty Corrections: (The following items were deleted from the chart) 13:48 13:00 Inserted saline lock: 22 gauge in right forearm, using aseptic technique. Blood ty collected. IV discontinued, intact, bleeding controlled, No redness/swelling at site. Pressure dressing applied, ty 18:47 16:50 BP 132 / 74; Pulse 70bpm; Resp 17bpm; Pulse Ox 99% RA; rs5 rs5
--- NOTE | 2024-07-14 15:30 | EDPHYS ---
Physician Documentation [facility] Name: Leigh Doyle Age: 53 yrs Sex: Female : 1970 Arrival Date: 07/14/2024 Time: 12:35 Bed 15 Private MD: ED Physician Yvette Meza HPI: 07/14 13:06 This 53 yrs old Female presents to ER via Wheelchair with complaints of Fall Injury, sp3 Dizziness. 13:06 53-year-old female with DVT history, GERD, partial tongue removal secondary to sp3 "cancer", appendectomy now presents to the ED with chief complaint right-sided headache and dizziness. Patient states that she got up in the bathroom and tripped and fell and hit her head. Also complains of mild neck pain. She denies medical prodrome prior to the event, chest pain, shortness of breath, other extremity injury, abdominal pain, syncope, or any other signs or symptoms on ROS at this time.. 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 - Infectious Disease History:: Denies. - Social history:: Smoking status: Patient reports the use of cigarette tobacco products, smokes one-half pack cigarettes per day. ROS: 13:06 Constitutional: Negative for fever, chills, and weight loss, Eyes: Negative for injury, sp3 pain, redness, and discharge, ENT: Negative for injury, pain, and discharge, Neck: Negative for injury, pain, and swelling, Cardiovascular: Negative for chest pain, palpitations, and edema, Respiratory: Negative for shortness of breath, cough, wheezing, and pleuritic chest pain, Abdomen/GI: Negative for abdominal pain, nausea, vomiting, diarrhea, and constipation, Back: Negative for injury and pain, MS/Extremity: Negative for injury and deformity, Skin: Negative for injury, rash, and discoloration, Psych: Negative for depression, anxiety, suicide ideation, homicidal ideation, and hallucinations, Allergy/Immunology: Negative for hives, rash, and allergies, Endocrine: Negative for neck swelling, polydipsia, polyuria, polyphagia, and marked weight changes, Hematologic/Lymphatic: Negative for swollen nodes, abnormal bleeding, and unusual bruising, 13:06 All other systems are negative, Exam: 13:07 Constitutional: This is a well developed, well nourished patient who is awake, alert, sp3 and in no acute distress. Head/Face: Normocephalic, atraumatic. Eyes: Pupils equal round and reactive to light, extra-ocular motions intact. Lids and lashes normal. Conjunctiva and sclera are non-icteric and not injected. Cornea within normal limits. Periorbital areas with no swelling, redness, or edema. ENT: Nares patent. No nasal discharge, no septal abnormalities noted. External auditory canals are clear. Oropharynx with no redness, swelling, or masses, exudates, or evidence of obstruction, uvula midline. Mucous membranes moist. Neck: Trachea midline, no thyromegaly or masses palpated, and no cervical lymphadenopathy. Supple, full range of motion without nuchal rigidity, or vertebral point tenderness. No Meningismus. Chest/axilla: Normal chest wall appearance and motion. Nontender with no deformity. No lesions are appreciated. Cardiovascular: Regular rate and rhythm with a normal S1 and S2. No gallops, murmurs, or rubs. Normal PMI, no JVD. No pulse deficits. Respiratory: Lungs have equal breath sounds bilaterally, clear to auscultation and percussion. No rales, rhonchi or wheezes noted. No increased work of breathing, no retractions or nasal flaring. Abdomen/GI: Soft, non-tender, with normal bowel sounds. No distension or tympany. No guarding or rebound. No evidence of tenderness throughout. Back: No spinal tenderness. No costovertebral tenderness. Full range of motion. Skin: Warm, dry with normal turgor. Normal color with no rashes, no lesions, and no evidence of cellulitis. MS/ Extremity: Pulses equal, no cyanosis. Neurovascular intact. Full, normal range of motion. Psych: Awake, alert, with orientation to person, place and time. Behavior, mood, and affect are within normal limits. 13:07 Neuro: No focal neurological deficits, normal speech, gait not tested. Patient does get mild vertigo on positional movement. Vital signs are normal., 13:56 ECG was reviewed by the Attending Physician. EKG demonstrates normal sinus rhythm at 70 sp3 bpm with normal intervals, normal QRS, leftward axis and nonspecific diffuse ST/T changes without evidence of acute ischemia. Vital Signs: 12:47 BP 128 / 70; Pulse 71; Resp 16; Temp 97.8; Pulse Ox 100% on R/A; Weight 56.25 kg; iw Height 5 ft. 4 in. ; Pain 6/10; 16:00 BP 132 / 74; Pulse 70; Resp 17; Pulse Ox 99% on R/A; rs5 12:47 Body Mass Index 21.28 (56.25 kg, 162.56 cm) iw 12:47 Pain Scale: Adult iw MDM: 12:40 Medical Screening Exam initiated sp3 13:07 Data reviewed: vital signs, nurses notes, old medical records, lab test result(s), sp3 radiologic studies. ED course: 53-year-old female with headache and near syncope/vertigo type symptoms since yesterday. Differential diagnosis includes concussion, closed head injury, postconcussive nausea, electrolyte abnormality, viral illness. I am at highly suspicious for sepsis, shock, acute coronary syndrome, CVA, or any other critical pathology. Workup will include CT scan of the head and C-spine, general labs and supportive care. Disposition probable discharge home. IV fluids and ondansetron IV also given.. 15:29 ED course: Full workup negative. Patient mildly anemic. Will discharge on ondansetron sp3 and follow-up with PCP.. 07/14 12:55 Order name: CBC with Diff; Complete Time: 15:12 sp3 07/14 12:55 Order name: CMP; Complete Time: 15:12 sp3 07/14 12:55 Order name: CT Head C Spine; Complete Time: 14:48 sp3 07/14 12:55 Order name: IV Saline Lock; Complete Time: 15:19 sp3 07/14 12:55 Order name: Labs collected and sent; Complete Time: 15:19 sp3 Administered Medications: 13:10 Drug: LORazepam PO 1 mg PO once Route: PO; rs5 13:37 Follow up: Response: No adverse reaction; Anxiety decreased rs5 14:50 Drug: Ondansetron IVP 4 mg IVP once; over 2 minutes Route: IVP; Site: right forearm; rs5 15:40 Follow up: Response: No adverse reaction; Nausea is decreased rs5 14:50 Drug: NS 0.9% IV 1000 ml IV at 1 bolus Per protocol; to be given as a bolus over 60 iw minutes Route: IV; Rate: 1 bolus; Site: right forearm; 15:51 Follow up: Response: No adverse reaction; IV Intake: 999ml rs5 Disposition Summary: 07/14/24 15:30 Discharge Ordered Notes: Location: Home sp3 Condition: Stable sp3 Diagnosis - Closed head injury, vomiting, postconcussion syndrome sp3 Followup: sp3 - With: Private Physician - When: Upon discharge from the Emergency Department - Reason: Continuance of care Discharge Instructions: - Discharge Summary Sheet sp3 - Post-Concussion Syndrome, [id number] sp3 Forms: - Medication Reconciliation Form sp3 - Antibiotic Education sp3 - Prescription Opioid Use sp3 - Patient Portal Instructions sp3 - Leadership Thank You Letter sp3 Prescriptions: - ondansetron 8 mg Oral Tablet,disintegrating - take 1 tablet ORAL route every 12 hours; 20 tablet; Refills: 0, Product sp3 Selection Permitted Signatures: Dispatcher [employer] Arleen Jung RN RN iw Papito Trinidad RN RN ll1 Yvette Meza MD MD sp3 Moiz Bowman RN RN rs5 Corrections: (The following items were deleted from the chart) 12:56 12:56 Head C Spine MPR Wo [id number] ordered. [facility] 13:09 13:07 ED course: 53-year-old female with headache and near syncope/vertigo type sp3 symptoms since yesterday. Workup will include CT scan of the head and C-spine, general labs and supportive care. Disposition probable discharge home. IV fluids and ondansetron IV also given.. sp3
[2024-07-17 15:24] VITALS: BP 128/70; TEMP 97.8; O2SAT 100
--- NOTE | 2024-07-19 12:15 | EKG ---
Test Date: 2024-07-14 Test Time: 13:17:47 Interior Design Professional: RAMA MEASUREMENT RESULTS: Intervals: Rate: 69 UT: 164 QRSD: 92 QT: 392 QTc: 420 [place]: P: 68 UT: 164 QRS: -25 T: 58 INTERPRETIVE STATEMENTS: Normal sinus rhythm with sinus arrhythmia Normal ECG Compared to ECG 12/02/2023 20:08:18 First degree AV block no longer present ST (T wave) deviation no longer present Prolonged QT interval no longer present Electronically Signed On 07-19-24 12:11:13 DENTAL PROFESSIONAL by Nick Strickland
== END 2024-07-14 16:06 | disposition home or self-care (01) ==
LOC: ER 12:35
DX: S09.90XA Unspecified injury of head, initial encounter (principal); F07.81 Postconcussional syndrome; R11.10 Vomiting, unspecified; F17.210 Nicotine dependence, cigarettes, uncomplicated; Z88.0 Allergy status to penicillin; Z88.5 Allergy status to narcotic agent
CPT/HCPCS: 93005; 85025; 36415; 80053; 70450; 72125; 96374; 99284; J2405; J7030